=== PATIENT | female | born 1960 | race American Indian/Alaskan Native ===

== ENCOUNTER 2017-08-25 16:24 | Emergency (ER) | payer MEDICAID ==
[2017-08-25 17:14] VITALS: BMI 31.6
[2017-08-25 17:16] VITALS: BP 144/82; PULSE 97; TEMP 99.5; O2SAT 98
[2017-08-25] MEDS ORDERED: Dexamethasone 10 MG in Sodium Chloride 0.9% 50 ML IM STA (17:40)
[2017-08-25 17:56] VITALS: RESP 18
--- NOTE | 2017-08-25 19:37 | C.PDOC ---
History Of Present Illness 57 y/o female presents to the ER complaining of sore throat which has been present for the past 3 days. Patient denies having fever, CP, SOB, and cough. Chief Complaint (Nursing): ENT Problem History Per: Patient History/Exam Limitations: no limitations Onset/Duration Of Symptoms: Days Current Symptoms Are (Timing): Still Present Severity: Moderate Past Medical History Reviewed: Historical Data, Nursing Documentation, Vital Signs Vital Signs: Last Vital Signs Temp 99.5 F 08/25/17 17:14 Pulse 97 H 08/25/17 17:14 Resp 18 08/25/17 17:54 BP 144/82 08/25/17 17:14 Pulse Ox 98 08/25/17 19:42 - Medical History PMH: Asthma, Back Problems (Scoliosis), Gastritis, HTN Other Surgeries: Hx of surgeries Family History: States: No Known Family Hx - Social History Hx Alcohol Use: No Hx Substance Use: No - Immunization History Hx Tetanus Toxoid Vaccination: No Hx Influenza Vaccination: No Hx Pneumococcal Vaccination: No Review Of Systems Except As Marked, All Systems Reviewed And Found Negative. Constitutional: Negative for: Fever, Chills ENT: Positive for: Throat Pain Cardiovascular: Negative for: Chest Pain Respiratory: Negative for: Cough, Shortness of Breath Physical Exam - Physical Exam Appears: Non-toxic, No Acute Distress Skin: Normal Color, Warm, Dry Head: Atraumatic, Normacephalic Eye(s): bilateral: Normal Inspection Ear(s): Bilateral: Normal Nose: Normal Oral Mucosa: Moist Throat: Erythema, No Exudate Neck: Supple Lymphatic: Adenopathy (anterior cervical lymphadenopathy) Chest: Symmetrical Cardiovascular: Rhythm Regular Respiratory: Normal Breath Sounds, No Rales, No Rhonchi, No Wheezing Neurological/Psych: Oriented x3, Normal Speech ED Course And Treatment O2 Sat by Pulse Oximetry: 98 (RA) Pulse Ox Interpretation: Normal Medical Decision Making Medical Decision Making: Plan: --Decadron Injection Updates: On re-evaluation, patient states she feel better. Patient has been discharged and instructed to follow up with PMD in 2-3 days. Disposition - Disposition Referrals: Cheri Terrell, [Non-Staff] - Disposition: HOME/ ROUTINE Disposition Time: 17:35 Condition: GOOD Additional Instructions: CHRISTINE SIDDIQI, thank you for letting us take care of you today. Your provider was Christiano Passafaro DO and you were treated for THROAT PAIN. The emergency medical care you received today was directed at your acute symptoms. If you were prescribed any medication, please fill it and take as directed. It may take several days for your symptoms to resolve. Return to the Emergency Department if your symptoms worsen, do not improve, or if you have any other problems. Please contact your doctor or call one of the physicians/clinics you have been referred to that are listed on the Patient Visit Information form that is included in your discharge packet. Bring any paperwork you were given at discharge with you along with any medications you are taking to your follow up visit. Our treatment cannot replace ongoing medical care by a primary care provider outside of the emergency department. Thank you for allowing the [facility] team to be part of your care today. Follow up with your primary care doctor in 2-3 days for re-evaluation and further management. Prescriptions: Amoxicillin 875 mg PO BID #14 tablet predniSONE [Prednisone] 40 mg PO DAILY #10 tab Instructions: Sore Throat, Adult (DC) Forms: [facility] ([place]) - Clinical Impression Clinical Impression: Pharyngitis - Scribe Statement The provider has reviewed the documentation as recorded by the Brunoibe Joselin Phan Provider Attestation: All medical record entries made by the Scribe were at my direction and personally dictated by me. I have reviewed the chart and agree that the record accurately reflects my personal performance of the history, physical exam, medical decision making, and the department course for this patient. I have also personally directed, reviewed, and agree with the discharge instructions and disposition.
== END 2017-08-25 17:55 | disposition home or self-care (01) ==
LOC: C.ER 16:24
DX: J02.9 Acute pharyngitis, unspecified (principal)
CPT/HCPCS: 96372; 99283; J1100